=== PATIENT | female | born 1970 | race Caucasian/White ===

== ENCOUNTER → 2023-07-08 10:29 | Outpatient (REF) | payer MEDICARE, BC, MEDICAID, SELFPAY | LOC: HWWDC 10:29 | PROVIDERS: ATTENDING PHYSICIAN Internal Medicine | DX: Z12.31 Encounter for screening mammogram for malignant neoplasm of breast (principal) | CPT/HCPCS: 77063; 77067 ==

== ENCOUNTER → 2024-05-08 14:19 | Outpatient (REF) | payer MEDICARE, BC, MEDICAID, SELFPAY | LOC: HWRAD 14:19 | PROVIDERS: ATTENDING PHYSICIAN Internal Medicine Rheumatology; FAMILY PHYSICIAN Internal Medicine | DX: L40.9 Psoriasis, unspecified (principal) | CPT/HCPCS: 73130 ==

== ENCOUNTER → 2024-07-08 09:48 | Outpatient (REF) | payer MEDICARE, BC, MEDICAID, SELFPAY | LOC: HWWDC 09:48 | PROVIDERS: ATTENDING PHYSICIAN Internal Medicine | DX: Z12.31 Encounter for screening mammogram for malignant neoplasm of breast (principal) | CPT/HCPCS: 77063; 77067 ==

== ENCOUNTER → 2024-12-21 09:02 | Outpatient (REF) | payer MEDICARE, BC, MEDICAID, SELFPAY | LOC: HWRAD 09:02 | PROVIDERS: ATTENDING PHYSICIAN Internal Medicine Hematology & Oncology | DX: D70.9 Neutropenia, unspecified (principal); D68.00 Von Willebrand disease, unspecified; D72.819 Decreased white blood cell count, unspecified; D51.9 Vitamin B12 deficiency anemia, unspecified; D69.6 Thrombocytopenia, unspecified | CPT/HCPCS: 76705 ==